=== PATIENT | male | born 1960 | race Caucasian/White ===

== ENCOUNTER 2016-08-16 05:25 | Day surgery (SDC) | payer OTHER ==
[2016-08-16] MEDS ORDERED: LR 1,000 ML ONE (05:49)
[2016-08-16] MEDS ORDERED: MYLICON DROPS (DOSE) MISC ONE (08:13)
[2016-08-16] MEDS ORDERED: DIPRIVAN 1% ONE (09:05)
[2016-08-16] MEDS ORDERED: FENTANYL ONE (09:05)
[2016-08-16] MEDS ORDERED: XYLOCAINE-MPF 2% ONE (09:32)
[2016-08-16 09:45] VITALS: BP 121/74
--- NOTE | 2016-08-20 23:12 | OPERATIVE NOTE ---
PROCEDURE DATE: 08/16/2016 REFERRING PHYSICIAN: Ladarius Abdi MD. INDICATION FOR PROCEDURE: 1. Hepatitis C. 2. Fatigue. 3. Iron-deficiency anemia. 4. Heartburn. 5. Dysphagia. 6. Epigastric pain. PROCEDURE PERFORMED: Esophagogastroduodenoscopy with biopsy. CONSENT: Informed consent was obtained from the patient prior to the procedure. The risks, benefits, and alternatives were discussed. MEDICATION: The patient received monitored anesthesia care. PERFORMING PHYSICIAN: Uzma Rocha MD. ASSISTANTS: 1. [facility] 2. Janie Castellon RN. 3. Pebbles Beth CRNA. 4. Sergo Valdez MD (Anesthesia). COMPLICATIONS: There were no complications. ESTIMATED BLOOD LOSS: Less than 1 mL. SPECIMENS REMOVED: 1. Duodenal biopsy. 2. Gastric biopsy. 3. Distal esophageal polyp versus sessile lesion. FINDINGS: After sedation was achieved, the upper endoscope was inserted to the 2nd portion of the duodenum. The hypopharynx appeared endoscopically normal. In the tubular esophagus, there was Patricia esophagitis from top to bottom. In the distal esophagus, there were streaks of ulcerations and erosions consistent with grade C erosive esophagitis. The ulcerations began at 32 cm from the incisors and expanded to the GE junction at 35 cm. There was the GE junction that appeared grossly correction that appeared regular correction that appeared grossly normal with a Schatzki's ring. There was no evidence of Callaway's esophagus. There was a polypoid lesion at the GE junction that was biopsied with cold biopsy forceps. There was a hiatal hernia that spanned from 35-41 cm. There was no evidence of [place]'s ulcers, or other lesions in the hernia sac. In the gastric lumen, there was erosive gastritis. On retroflexed view, there were fundic gland polyps. They were less than 10 mm and remained intact. On forward view, the pylorus appeared endoscopically normal. In the duodenal bulb, there was a superficial whitish- based ulcer with inflammation surrounding the ulcerated area consistent with duodenitis. After the exam was complete and biopsies were taken, the lumen was decompressed and the scope was removed without incident. IMPRESSION: 1. Patricia esophagitis. 2. Grade C erosive esophagitis. 3. Schatzki's ring. 4. Polypoid lesion at the GE junction. 5. Hiatal hernia. 6. Erosive gastritis. 7. Fundic gland polyps. 8. Nonbleeding duodenal bulb ulcer. 9. Duodenitis. RECOMMENDATION: 1. Await biopsy results. 2. Begin Prilosec 40 mg daily. 3. Begin Diflucan 200 mg today, followed by 100 mg daily for 20 days for a total of 21 days of treatment. Begin Carafate 1 g 4 times a day for 12 weeks. He was instructed to ovoid taking Carafate with other medications. 4. Because of the dysphagia, I will plan to repeat his esophagogastroduodenoscopy in 12 weeks and performed dilation if there is healing of the Patricia esophagitis and erosive esophagitis. 5. We will proceed with this colonoscopy as previously scheduled.
--- NOTE | 2016-08-21 03:28 | OPERATIVE NOTE ---
PROCEDURE DATE: 08/16/2016 REFERRING PHYSICIAN: Dr. Floyd Abdi. INDICATION FOR PROCEDURE: 1. Change in bowel habits. 2. Constipation. 3. Iron-deficiency anemia. 4. Epigastric pain. PROCEDURE PERFORMED: Colonoscopy with polypectomy. CONSENT: Informed consent was obtained from the patient prior to the procedure. The risks, benefits, and alternatives were discussed. MEDICATIONS: The patient received monitored anesthesia care. PERFORMING PHYSICIAN: Uzma Rocha MD. ASSISTANTS: 1. [facility] 2. Janie Castellon RN. 3. Pebbles Beth CRNA. 4. Sergo Valdez MD (anesthesia). COMPLICATIONS: There were no complications. ESTIMATED BLOOD LOSS: Less than 1 mL. SPECIMENS REMOVED: 1. Ascending colon polyp. 2. Polyp at 45 cm. 3. Two polyps at 20 cm. CECAL INTUBATION TIME: 3 minutes. WITHDRAWAL TIME: 21 minutes. PREP QUALITY: Fair to poor. FINDINGS: After the EGD was performed, the pediatric colonoscope was inserted to the terminal ileum. The terminal ileum, ileocecal valve, and appendiceal orifice appeared endoscopically normal. There was a 10-15 mm sessile polyp in the ascending colon that was removed by snare cautery. There was a 5-10 mm polyp at 45 cm removed by snare cautery. There were 2 polyps at 20 cm that ranged in size from 5-10 mm that were removed by snare cautery. There was also diverticulosis throughout the colon with a left-sided predominance. In the upper rectum, there were grade 2 internal hemorrhoids. In the mid rectal body, there was a rectal polyp that was less than 5 mm and remains intact. On retroflexed view, there were medium external hemorrhoids. It should be noted that throughout the colonic mucosa, there were scattered nonbleeding AVMs. After the exam was complete and polypectomy performed, the lumen was decompressed and the scope was removed without incident. IMPRESSION: 1. Multiple colon polyps. 2. Nonbleeding arteriovenous malformations. 3. Diverticulosis. 4. Grade 2 internal hemorrhoids. 5. Small rectal polyp. 6. Medium external hemorrhoids. RECOMMENDATION: 1. Await biopsy results. 2. Given the size and number of polyps in the setting of a poor prep, I recommend a repeat colonoscopy in 9 to 12 months. 3. Consider MiraLAX for treatment of the constipation. 4. Please see the EGD report for additional details. 5. We will have the patient return to clinic in 4 weeks to assess interval progress.
== END 2016-08-16 09:49 | disposition home or self-care (01) ==
LOC: ENDO 05:25
PROVIDERS: ATTEND Internal Medicine Gastroenterology
DX: K29.70 Gastritis, unspecified, without bleeding (principal); K59.00 Constipation, unspecified; D12.2 Benign neoplasm of ascending colon; B19.20 Unspecified viral hepatitis C without hepatic coma; R53.83 Other fatigue; D50.9 Iron deficiency anemia, unspecified
CPT/HCPCS: 82948; 88305; 88312; 88313; J3010; J7120

== ENCOUNTER 2016-08-21 06:28 | Day surgery (SDC) ==
[2016-08-21] MEDS ORDERED: LR 1,000 ML ONE (06:51)
[2016-08-21 07:16] LABS: INR 0.99; PROTIME 10.5 Seconds (9.2-11.7); PTT 21.8 Seconds (22.0-36.0)
[2016-08-21 08:48] VITALS: BP 115/74
== END 2016-08-21 08:49 | disposition home or self-care (01) ==
LOC: OPS 06:28 → EDSTATUS 07:30 → OPS 08:49
PROVIDERS: ATTEND Internal Medicine Gastroenterology
DX: B19.20 Unspecified viral hepatitis C without hepatic coma (principal); Z53.8 Procedure and treatment not carried out for other reasons
CPT/HCPCS: 82948; 85610; 85730; J7120